=== PATIENT | male | born 1965 | race Caucasian/White ===

== ENCOUNTER 2018-02-22 05:48 | Emergency (ER) | payer MEDICARE ==
[2018-02-22 05:59] VITALS: BP 114/84
[2018-02-22] MEDS ORDERED: DEXAMETHASONE 10 MG/ML VIAL PO STA (06:04)
[2018-02-22] MEDS ORDERED: HYDROcod/ACETAM 5/325 MG TABLET PO STA (06:04)
--- NOTE | 2018-02-22 06:07 | ED Physician Documentation ---
PD HPI BACK PAIN - Stated complaint Stated Complaint: HIP PAIN - Chief complaint Chief Complaint: Ext Problem - History obtained from History obtained from: Patient, Family - History of Present Illness Timing - onset: How many days ago (3) Timing - duration: Days (3) Timing - details: Abrupt onset, Still present Location: Lower, Right Quality: Pain, Spasm, Sharp Associated symptoms: No: Fever, Weakness, Numbness, Incontinent of urine, Unable to urinate, Hematuria, Incontinent of stool Improves with: Rest, Position, Meds Worsened by: Movement Contributing factors: Other (injury 3 days ago while moving a desk) Similar symptoms before: Has not had sx before Recently seen: Not recently seen - Additional information Additional information: 52-year-old male with history of coronary artery disease has developed acute right hip pain. He relates a history that he was helping move a desk 3 days ago and the person on the other into the desk let go he had a sudden jerk in his back and he has pain radiating to his right hip. He did go and see a chiropractor and this helped temporarily but he has not been able to sleep for the past 2 nights. He has been up all night and comes into the emergency department pacing in pain. Review of Systems Constitutional: denies: Fever Eyes: denies: Decreased vision Ears: denies: Ear pain Nose: denies: Congestion Throat: denies: Sore throat Cardiac: denies: Chest pain / pressure, Palpitations Respiratory: denies: Dyspnea, Cough GI: denies: Abdominal Pain, Nausea, Vomiting : denies: Dysuria, Frequency Skin: denies: Rash Musculoskeletal: reports: Back pain, Extremity pain. denies: Neck pain Neurologic: denies: Generalized weakness, Focal weakness, Numbness PD PAST MEDICAL HISTORY - Present Medications Home Medications: Ambulatory Orders Medication Instructions Recorded Confirmed Cyclobenzaprine [Flexeril] 10 mg PO TID PRN #20 tablet 02/22/18 Hydrocodone/Acetaminophen 1 - 2 each PO Q6H PRN #14 tablet 02/22/18 [Hydrocodon-Acetaminophen 5-325] - Allergies Allergies/Adverse Reactions: Allergies Allergy/AdvReac Type Severity Reaction Status Date / Time lisinopril Allergy Unknown Verified 02/22/18 05:55 PD ED PE NORMAL - Vitals Vital signs reviewed: Yes (hypertensive mild ) - General General: Alert and oriented X 3, Well developed/nourished, Other (appears to be in pain with residence leasing agent tone and flat affect ) - HEENT HEENT: Atraumatic, PERRL, EOMI - Respiratory Respiratory: No respiratory distress - Back Back: No CVA TTP, Other (There is tenderness and tensness to the paraspinous muscles of the lower lumbar spine on the right side and this extends into the sciatic notch. There is not specific tenderness to the trochanter although this is where the patient focuses his attention. ) - Derm Derm: Normal color, Warm and dry, No rash - Extremities Extremities: No deformity, No edema - Neuro Neuro: Alert and oriented X 3, operations representative 2-12 intact, No motor deficit, No sensory deficit, Normal speech Eye Opening: Spontaneous Motor: Obeys Commands Verbal: Oriented GCS Score: 15 - Psych Psych: Other (mood is painful and the affect is flat ) Results - Vitals Vitals: Vital Signs - 24 hr 02/22/18 05:53 Temperature 36.0 C L Heart Rate 66 Respiratory 20 Rate Blood Pressure 114/84 H O2 Saturation 100 Oxygen O2 Source Room air PD MEDICAL DECISION MAKING - ED course Complexity details: re-evaluated patient, considered differential, d/w patient, d/w family ED course: 52-year-old male with acute right-sided sciatica is administered dexamethasone 10 mg orally and hydrocodone 5 mg. Is placed on hydrocodone and Flexeril and instructed to ice and stretch and follow-up with his primary care doctor. Departure - Departure Disposition: 01 Home, Self Care Clinical Impression: Sciatica Qualifiers: Laterality: right Qualified Code(s): M54.31 - Sciatica, right side Condition: Stable Instructions: ED Sciatica Follow-Up: Cherie Mchugh PA-C [Provider Admit Priv/Credential] - Prescriptions: Cyclobenzaprine [Flexeril] 10 mg PO TID PRN #20 tablet PRN Reason: Spasms Hydrocodone/Acetaminophen [Hydrocodon-Acetaminophen 5-325] 1 - 2 each PO Q6H PRN #14 tablet PRN Reason: pain
== END 2018-02-22 06:20 | disposition home or self-care (01) ==
LOC: ED 05:48
DX: M54.31 Sciatica, right side (principal)
CPT/HCPCS: 99283; A9270

== ENCOUNTER 2018-02-24 15:59 | Outpatient (CLI) | payer MEDICARE ==
--- NOTE | 2018-02-26 01:06 | XRAY Report ---
Reason: LUMBAGO WITH SCIATICA,RIGHT SIDE Procedure Date: 02/24/2018 Accession Number: [id number] / [id number] Procedure: XR - Lumbar Spine 2 View CPT Code: FULL RESULT: EXAM: LUMBOSACRAL SPINE RADIOGRAPHY EXAM DATE: 02/24/2018 04:20 PM. CLINICAL HISTORY: LUMBAGO WITH SCIATICA,RIGHT SIDE. COMPARISONS: None. TECHNIQUE: 3 views. FINDINGS: Alignment: Normal. No spondylolisthesis or scoliosis. Bones: Five [id number] lumbar vertebral bodies are present. No fractures or bone lesions. Disks: Degenerative disk disease, worst at L4-L5. Facets: Degenerative facet arthropathy. Sacroiliac Joints: Unremarkable. Soft Tissues: Normal. The visualized bowel gas pattern is normal. IMPRESSION: Degenerative changes, worst at L4-L5. No evidence of fracture. RADIA
== END 2018-02-24 16:00 | disposition home or self-care (01) ==
LOC: DI 15:59
PROVIDERS: ATTEND Registered Nurse
DX: M51.16 Intervertebral disc disorders with radiculopathy, lumbar region (principal)
CPT/HCPCS: 72100

== ENCOUNTER 2019-07-01 10:15 | Emergency (ER) | payer MEDICARE ==
[2019-07-01 10:48] LABS: BASOPHILS % (AUTO) 0.2 %; EOSINOPHILS # (AUTO) 0.1 10^3/uL (0.0-0.7); EOSINOPHILS % (AUTO) 1.5 %; HGB - HEMOGLOBIN 14.2 g/dL (14.0-18.0); LYMPHOCYTES # (AUTO) 1.9 10^3/uL (1.5-3.5); LYMPHOCYTES % (AUTO) 22.1 %; MEAN CORPUSCULAR HEMOGLOBIN 30.9 pg (27.0-31.0); MEAN CORPUSCULAR HGB CONC 33.7 g/dL (32.0-36.0); MEAN CORPUSCULAR VOLUME 91.5 fL (80.0-94.0); MEAN PLATELET VOLUME 9.6 fL (7.4-11.4); MONOCYTES # (AUTO) 0.9 10^3/uL (0.0-1.0); MONOCYTES % (AUTO) 10.4 %; NEUTROPHILS # (AUTO) 5.7 10^3/uL (1.5-6.6); NEUTROPHILS % (AUTO) 65.2 %; PLT - PLATELET COUNT 223 10^3/uL (130-450); RED CELL DISTRIBUTION WIDTH 17.5 % (12.0-15.0); WHITE BLOOD COUNT 8.8 x10^3/uL (4.8-10.8)
--- NOTE | 2019-07-01 10:48 | ED Physician Documentation ---
PD HPI SYNCOPE - Stated complaint Stated Complaint: SYNCOPE/HEAD INJ - Chief complaint Chief Complaint: Cardiac - History obtained from History obtained from: Patient - History of Present Illness Witnessed: Witnessed Timing - onset: Today Duration: Seconds Preceding symptoms: Vision changes Injury occurred: Fell, Head injury Similar symptoms before: Diagnosis (V-tach last week) Recently seen: Clinic - Additional information Additional information: 53-year-old male on Coumadin has had a round level fall striking his head. He has had episodes of dizziness and lightheaded over the past week and he has had a recent change in his medications. He believes he is now to dry weight at 190.5 pounds believes he is lost about 5 pounds in the past week. Review of Systems Constitutional: denies: Fever Eyes: denies: Decreased vision Ears: denies: Ear pain Nose: denies: Rhinorrhea / runny nose, Congestion Throat: denies: Sore throat Cardiac: denies: Chest pain / pressure, Palpitations Respiratory: denies: Dyspnea, Cough GI: denies: Abdominal Pain, Nausea, Vomiting : denies: Dysuria, Frequency Skin: denies: Rash Musculoskeletal: denies: Neck pain, Back pain, Extremity pain Neurologic: reports: Syncope, Head injury. denies: Generalized weakness, Focal weakness, Numbness PD PAST MEDICAL HISTORY - Past Medical History Cardiovascular: OR - Past Surgical History Past Surgical History: Yes Cardiovascular: Coronary stent - Present Medications Home Medications: Ambulatory Orders Medication Instructions Recorded Confirmed Cyclobenzaprine [Flexeril] 10 mg PO TID PRN #20 tablet 02/22/18 Hydrocodone/Acetaminophen 1 - 2 each PO Q6H PRN #14 tablet 02/22/18 [Hydrocodon-Acetaminophen 5-325] - Allergies Allergies/Adverse Reactions: Allergies Allergy/AdvReac Type Severity Reaction Status Date / Time lisinopril Allergy Unknown Verified 02/22/18 05:55 - Social History Does the pt smoke?: No Smoking Status: Never smoker Does the pt drink ETOH?: No Does the pt have substance abuse?: No - Immunizations Immunizations are current?: Yes - POLST Patient has POLST: No PD ED PE NORMAL - Vitals Vital signs reviewed: Yes (hypotensive ) - General General: Alert and oriented X 3, No acute distress, Well developed/nourished - HEENT HEENT: PERRL, EOMI - Neck Neck: Supple, no meningeal sign, No bony TTP - Cardiac Cardiac: RRR, No murmur - Respiratory Respiratory: No respiratory distress, Clear bilaterally - Abdomen Abdomen: Normal bowel sounds, Soft, Non tender, Non distended, No organomegaly - Back Back: No CVA TTP, No spinal TTP - Derm Derm: Normal color, Warm and dry, No rash - Extremities Extremities: No deformity, No edema - Neuro Neuro: Alert and oriented X 3, prn physical therapist 2-12 intact, No motor deficit, No sensory deficit, Normal speech Eye Opening: Spontaneous Motor: Obeys Commands Verbal: Oriented GCS Score: 15 - Psych Psych: Normal mood, Normal affect Results - Vitals Vitals: Vital Signs - 24 hr 07/01/19 07/01/19 07/01/19 10:22 10:26 10:30 Temperature 36.4 C L Heart Rate 66 76 76 Respiratory 16 16 Rate Blood Pressure 85/60 L 88/67 L 88/66 L O2 Saturation 98 99 07/01/19 07/01/19 07/01/19 11:00 11:50 12:13 Temperature Heart Rate 61 57 L Respiratory 18 Rate Blood Pressure 66/51 L 74/48 L 78/45 L O2 Saturation 96 07/01/19 13:06 Temperature Heart Rate 59 L Respiratory 18 Rate Blood Pressure 82/53 L O2 Saturation 99 Oxygen O2 Source Room air - EKG (time done) 1024 Rate: Rate (enter#) (68) Intervals: Prolonged NC Ischemia: Q waves Compare to prior EKG: Old EKG unavailable Computer interpretation: Agree with computer - Labs Labs: Laboratory Tests 07/01/19 07/01/19 07/01/19 10:38 10:38 10:38 WBC 8.8 RBC 4.60 L Hgb 14.2 Hct 42.1 MCV 91.5 MCH 30.9 MCHC 33.7 RDW 17.5 H Plt Count 223 MPV 9.6 Neut # (Auto) 5.7 Lymph # (Auto) 1.9 [place] # (Auto) 0.9 Eos # (Auto) 0.1 Baso # (Auto) 0.0 Absolute Nucleated RBC 0.00 Nucleated RBC % 0.0 Sodium Potassium Chloride Carbon Dioxide Anion Gap BUN Creatinine Estimated GFR (MDRD) Glucose Calcium Total Bilirubin AST ALT Alkaline Phosphatase Troponin I High Sens 9.3 B-Natriuretic Peptide 585 H Total Protein Albumin Globulin Albumin/Globulin Ratio Lipase Urine Color Urine Clarity Urine pH Ur Specific [place] Urine Protein Urine Glucose (UA) Urine Ketones Urine Occult Blood Urine Nitrite Urine Bilirubin Urine Urobilinogen Ur Leukocyte Esterase Ur Microscopic Review Urine Culture Comments 07/01/19 07/01/19 10:38 10:45 WBC RBC Hgb Hct MCV MCH MCHC RDW Plt Count MPV Neut # (Auto) Lymph # (Auto) [place] # (Auto) Eos # (Auto) Baso # (Auto) Absolute Nucleated RBC Nucleated RBC % Sodium 136 Potassium 4.0 Chloride 100 L Carbon Dioxide 27 Anion Gap 9.0 BUN 38 H Creatinine 1.8 H Estimated GFR (MDRD) 40 L Glucose 94 Calcium 8.8 Total Bilirubin 1.3 H AST 40 ALT 46 Alkaline Phosphatase 85 Troponin I High Sens B-Natriuretic Peptide Total Protein 7.7 Albumin 4.2 Globulin 3.5 Albumin/Globulin Ratio 1.2 Lipase 44 Urine Color YELLOW Urine Clarity CLEAR Urine pH 6.0 Ur Specific [place] 1.010 Urine Protein NEGATIVE Urine Glucose (UA) NEGATIVE Urine Ketones NEGATIVE Urine Occult Blood NEGATIVE Urine Nitrite NEGATIVE Urine Bilirubin NEGATIVE Urine Urobilinogen 0.2 (NORMAL) Ur Leukocyte Esterase NEGATIVE Ur Microscopic Review NOT INDICATED Urine Culture Comments NOT INDICATED Procedures - IVC sono (time) 1038 Bedside IVC sono: IVC measures (cm) (1.6), IVC collapsed c insp (cm) (0.7), Euvolemia PD MEDICAL DECISION MAKING - ED course Complexity details: reviewed old records, reviewed results, re-evaluated patient, considered differential, d/w patient ED course: 53-year-old male with a history of congestive heart failure and an implanted ICD has had a syncopal episode this morning he is on anticoagulation. He did hit his head he feels well now and back to baseline. He does indicate that he has had a decrease in his weight recently by about 5 pounds in the last 3 days he is on a diuretic his breathing he states is good today. He is dry today with a dry appearing x-ray, dry weight, a normally collapsing IVC and exertional syncope. He is administered 500ml saline. His utilities estimator and drafter Dr. Chaidez is consulted in the case and recommends the patient reduce his bumex to once per day and follow up with him. Departure - Departure Disposition: 01 Home, Self Care Clinical Impression: Dehydration Syncope Qualifiers: Syncope type: unspecified Qualified Code(s): R55 - Syncope and collapse Condition: Stable Instructions: ED Dehydration, ED Syncope Vasovagal Follow-Up: Your, utilities estimator and drafter as planned. [Other] Comments: Today you have reached your dry weight and your fainting episode appears to be related to dehydration. Dr. Ferguson has recommended you decrease your dose of Bumex to once per day. Drink some extra fluid today. Discharge Date/Time: 07/01/19 13:15
[2019-07-01 11:12] LABS: BILIRUBIN,URINE NEGATIVE (NEGATIVE); GLUCOSE, URINE (UA) NEGATIVE (NEGATIVE); KETONES,URINE (UA) NEGATIVE (NEGATIVE); LEUKOCYTE ESTERASE, URINE NEGATIVE (NEGATIVE); NITRITE,URINE NEGATIVE (NEGATIVE); OCCULT BLOOD,URINE NEGATIVE (NEGATIVE); PROTEIN,URINE NEGATIVE (NEGATIVE); UROBILINOGEN,URINE 0.2 (NORMAL) E.U./dL (NORMAL)
[2019-07-01 11:17] LABS: CLARITY,URINE CLEAR (CLEAR)
--- NOTE | 2019-07-01 11:20 | CT Report ---
Reason: head injury anticoagulated Procedure Date: 07/01/2019 Accession Number: [id number] / [id number] Procedure: CT - HEAD WO CPT Code: Final Report FULL RESULT: EXAM: CT HEAD EXAM DATE: 07/01/2019 10:54 AM. CLINICAL HISTORY: Pain post injury after fall, head injury, on anticoagulation. Syncopal episode. COMPARISON: None. TECHNIQUE: Multiaxial CT images were obtained from the foramen magnum to the vertex. Reformats: Sagittal and coronal. IV contrast: None. In accordance with CT protocol optimization, one or more of the following dose reduction techniques were utilized for this exam: automated exposure control, adjustment of mA and/or KV based on patient size, or use of iterative reconstructive technique. FINDINGS: Normal CT appearance of the brain. No acute intracranial hemorrhage. No evidence for hydrocephalus, mass or acute infarct. No displaced fracture. No acute paranasal sinus fluid opacification. Grossly clear mastoids. There are findings suggestive of previous sinus surgeries. Vertebral and carotid artery calcifications at the skull base consistent with intracranial atherosclerosis. IMPRESSION: No evidence for acute fracture or intracranial hemorrhage. RADIA
--- NOTE | 2019-07-01 11:28 | XRAY Report ---
Reason: chest pain Procedure Date: 07/01/2019 Accession Number: [id number] / [id number] Procedure: XR - Chest 1 View X-Ray CPT Code: 15348 Final Report FULL RESULT: EXAM: CHEST RADIOGRAPHY EXAM DATE: 07/01/2019 10:52 AM. CLINICAL HISTORY: Chest pain. COMPARISON: XR CHEST PA AND LAT 01/15/2009 12:31 PM. TECHNIQUE: 1 view. FINDINGS: Lungs/Pleura: No new focal lung consolidation or large effusions. No pneumothorax. Mediastinum: Stable mild enlarged cardiac silhouette size. Left-sided chest wall pacemaker/defibrillator with partially overlapping obscured leads. Other: None. IMPRESSION: 1. No focal lung consolidation or large effusions. 2. Stable mild enlarged cardiac silhouette size. RADIA
[2019-07-01] MEDS ORDERED: SODIUM CHLORIDE 0.9% 500 ML IV ONE (12:14)
[2019-07-01 12:46] LABS: ALBUMIN 4.2 g/dL (3.2-5.5); ALBUMIN/GLOBULIN RATIO 1.2 (1.0-2.2); BILIRUBIN,TOTAL 1.3 mg/dL (0.2-1.0); CALCIUM 8.8 mg/dL (8.5-10.3); CREATININE 1.8 mg/dL (0.6-1.2); TOTAL PROTEIN 7.7 g/dL (6.7-8.2)
[2019-07-01 13:07] VITALS: BP 82/53
== END 2019-07-01 13:15 | disposition home or self-care (01) ==
LOC: ED 10:15
DX: E86.0 Dehydration (principal); I50.9 Heart failure, unspecified; Z79.01 Long term (current) use of anticoagulants; Z79.899 Other long term (current) drug therapy
CPT/HCPCS: 36415; 70450; 71045; 80053; 81001; 81003; 83690; 83880; 84484; 85025; 87086; 93005; 96360; 99284

== ENCOUNTER 2019-10-19 12:42 | Outpatient (CLI) | payer OTHER ==
--- NOTE | 2019-10-23 09:41 | Mammography Report ---
MALE BILATERAL DIGITAL DIAGNOSTIC MAMMOGRAM 3D/2D: 10/19/2019 CLINICAL: Palpable lumps in both breasts. No prior exams were available for comparison. There is benign irregular equal density flame shaped asymmetry with indistinct margins in the right b reast central to the nipple in the retroareolar region. This correlates as palpated. There is benign irregular equal density flame-shaped asymmetry with indistinct margins in the left br east central to the nipple in the retroareolar region. This correlates as palpated. No other significant masses or calcifications are seen in either breast. IMPRESSION: BENIGN Bilateral flame-shaped retroareolar asymmetries consistent with gynecomastia are benign. Correlation is recommended clinically to determine etiology and followup. There is no mammographic evidence of malignancy. This exam was interpreted at Station ID: [id number]. NOTE: For mammograms, a report in lay terms will be sent to the patient. Approximately 15% of breast malignancies will not be visualized mammographically. In the management of a palpable breast mass, a negative mammogram must not discourage biopsy of a clinically suspicious lesion. Electronically Signed By: Jhon Briones M.D. ddp/:10/19/2019 14:06:55 ACR BI-RADS Category 2: Benign Finding(s) 3342F PARENCHYMAL PATTERN: (A) - The breast(s) demonstrate(s) scattered fibroglandular densities. BI-RADS CATEGORY: (2) - 2 Unspecified - other recall n/a LATERALITY: (B)
== END 2019-10-19 12:43 | disposition home or self-care (01) ==
LOC: DI 12:42
PROVIDERS: ATTEND Internal Medicine
DX: N62 Hypertrophy of breast (principal)
CPT/HCPCS: 77066